=== PATIENT | female | born 1945 | race Caucasian/White ===

== ENCOUNTER → 2017-04-30 | Outpatient (CLI) | payer MEDICARE, OTHER ==
[2017-04-30 12:25] LABS: HEMATOCRIT 38.4 % (37.0-47.0); HEMOGLOBIN 13.2 g/dl (12.5-16.0); MEAN CELL VOLUME 93 fl (80.0-100.0); MEAN CORPUSCULAR HEMOGLOBIN 32 pg (27.0-31.0); MEAN CORPUSCULAR HGB CONC 34 g/dl (33.0-37.0); MEAN PLATELET VOLUME 8.4 fl (7.4-10.4); PLATELET COUNT 382 K/mm3 (130-400); RED BLOOD COUNT 4.11 M/mm3 (4.10-5.30); REDCELL DISTRIBUTION WIDTH-CV 13.1 % (11.5-14.5); WHITE BLOOD COUNT 15.2 K/mm3 (4.8-10.8)
[2017-04-30 12:31] LABS: INR 1.2 (0.8-3.0); PROTHROMBIN TIME 13.4 SECONDS (9.7-12.8)
[2017-04-30 12:45] LABS: CALCIUM 9.3 mg/dL (8.4-10.2); CREATININE, serum 0.44 mg/dL (0.52-1.25); POTASSIUM 3.6 mmol/L (3.4-5.0)
== END ==
LOC: COL.LAB 11:45
PROVIDERS: Dentist Oral and Maxillofacial Surgery
DX: K12.2 Cellulitis and abscess of mouth (principal)
CPT/HCPCS: Q9967

== ENCOUNTER → 2017-05-01 | Outpatient (CLI) | payer MEDICARE, OTHER | LOC: ZCOL.LAB 11:07 | DX: L02.91 Cutaneous abscess, unspecified (principal) ==